=== PATIENT | female | born 1960 | race Caucasian/White ===

== ENCOUNTER 2018-09-01 13:54 | Inpatient (IN) ==
[2018-09-01] MEDS ORDERED: TYLENOL PO ONE (14:13)
--- NOTE | 2018-09-01 14:34 | Diag Imaging Result Doc PS360 ---
EXAM: CHEST-2 VIEWS - 09/01/2018 HISTORY: FEVER COUGH TECHNIQUE: Chest two views COMPARISON: 11/04/2016 FINDINGS: Heart size appears within normal limits. Inspiration is mildly shallow. There are ill-defined bilateral infiltrates. These are more extensive on the left than on the right. There is no substantial pleural effusion or pneumothorax identified. IMPRESSION: Ill-defined bilateral infiltrates, most extensive on the left. These are suspicious for pneumonia. Electronically signed by Varghese Hopkins 09/01/2018 2:32 PM
[2018-09-01 14:42] LABS: INFLUENZA A POSITIVE (NEGATIVE); INFLUENZA B NEGATIVE (NEGATIVE)
[2018-09-01 16:12] LABS: BASO# 0.03 X1000 (0.0-0.2); BASO% 0.2 % (0.0-0.8); EOS% 0.6 % (0.0-10.0); HEMATOCRIT 33.2 % (37.0-47.0); HEMOGLOBIN 10.7 g/dL (12.0-16.0); IMM GRAN# 0.08 X1000 (0.0-0.04); IMM GRAN% 0.5 % (0.0-0.5); LYMPH# 3.02 X1000 (1.2-3.4); LYMPH% 18.6 % (20.5-51.1); MCH 27.7 PG (27-31); MCHC 32.2 g/dL (33-37); MONO# 1.11 X1000 (0.11-0.59); MONO% 6.8 % (1.7-9.3); MPV 10.3 FL (7.4-10.4); NEUT# 11.94 X1000 (1.4-6.5); NEUT% 73.3 % (42.2-75.2); PLT 429 X1000 (130-400); RBC 3.86 XMIL (4.2-5.4); RDW 14.5 % (11.5-14.5); WBC 16.28 X1000 (4.8-10.8)
[2018-09-01] MEDS ORDERED: LEVAQUIN 750 MG/D5W 750 MG/150 ML IVPB IV ONE (16:23)
[2018-09-01 16:37] LABS: AGAP 13; ALBUMIN 3.3 g/dL (3.5-5.0); ALKALINE PHOSPHATASE 130 U/L (32-104); BUN 9 mg/dL (8-22); CALCIUM 8.6 mg/dL (8.8-10.2); CHLORIDE 98 mmol/L (98-107); COSMO 268; CREATININE 0.8 mg/dL (0.5-0.9); ESTIMATED GFR > 60; GLUCOSE 120 mg/dL (70-104); GOT 12 U/L (10-30); GPT 9 U/L (10-36); POTASSIUM 3.9 mmol/L (3.5-5.1); SODIUM 134 mmol/L (136-145); TCO2 23 mmol/L (25-35); TOTAL PROTEIN 6.8 g/dL (6.3-8.3)
[2018-09-01] MEDS ORDERED: DUONEB (A & A) INH PRN (16:56)
[2018-09-01 17:07] LABS: INR 0.98; PROTIME 13.5 Seconds (11.0-16.0)
[2018-09-01 17:08] LABS: PTT 31.5 Seconds (22.3-41.8)
[2018-09-01 17:10] LABS: BE 0.8 mmoll (-3.0-3.0); BLOOD TYPE ARTERIAL; HCO3-(ACT) 25.5 mmoll (20.0-26.0); METHB 0.9 % (0.0-1.5); O2(CT) 15.3 mL/dL (15.0-23.0); O2HB 93.5 % (95.0-99.0); PCO2(98.6) 39 mmHg (35-45); PO2(98.6) 79 mmHg (60-100); SAMPLE BLOOD; SAO2 97.4 % (95.0-100.0); THB 11.6 g/dL (11.5-17.4); pH(98.6) 7.42 (7.35-7.45)
[2018-09-01 17:15] LABS: MODALITY CANNULA
[2018-09-01 17:16] LABS: ALLEN TEST YES
[2018-09-01 17:55] LABS: BILIRUBIN URINE NEGATIVE (NEGATIVE); BLOOD URINE NEGATIVE (NEGATIVE); CLARITY CLEAR (CLEAR); COLOR YELLOW; GLUCOSE URINE NEGATIVE (NEGATIVE); KETONE URINE NEGATIVE (NEGATIVE); LEUKOCYTES URINE TRACE (NEGATIVE); NITRITE URINE NEGATIVE (NEGATIVE); PH URINE 6.5; PROTEIN URINE NEGATIVE (NEGATIVE); SP GRAVITY URINE 1.015; UROBILINOGEN URINE 1 mg/dL
[2018-09-01 17:56] LABS: URINE BACTERIA 1+ /HFP; URINE CAST NONE SEEN /LPF; URINE CRYSTAL NONE SEEN /HPF; URINE EPITHELIAL CELLS <10 /HPF (<10); URINE SOURCE CLEAN CATCH; URINE WBC <10 /HPF (<10); URINE YEAST NONE SEEN /HPF
[2018-09-01] MEDS ORDERED: ROBITUSSIN-AC PO PRN (18:17)
[2018-09-01] MEDS: SOLU-MEDROL IV SCH (18:30)
[2018-09-01] MEDS: KLONOPIN PO PRN ×2 (18:31→21:25)
[2018-09-01] MEDS: DUONEB (A & A) INH SCH ×3 (19:19→22:35)
--- NOTE | 2018-09-01 20:24 | HISTORY AND PHYSICAL ---
CHIEF COMPLAINT: Cough, fever. HISTORY OF PRESENT ILLNESS: This is a 57-year-old female with a history of COPD and hypertension, who presents to the emergency room complaining of a productive cough and fever as well as some shortness of breath. She was found to have bilateral pneumonia, with left greater than right. Blood cultures were obtained she was given Levaquin in the emergency room, and she is being admitted for further evaluation and treatment. PAST MEDICAL HISTORY: Hypertension, COPD, hyperlipidemia, anxiety, depression and bipolar disorder. PAST SURGICAL HISTORY: Hysterectomy, sinus surgery and back surgery. SOCIAL HISTORY: She smokes about a pack a day. She has occasional alcohol use. She denies any illicit drug use. ALLERGIES: Rocephin, which causes swelling and rash; Betadine which causes a rash; shellfish causes a rash; doxycycline causes a rash; Toradol, diarrhea; sulfa, rash. HOME MEDICATIONS: A list will be obtained by the nursing staff and will be reviewed and restarted as appropriate. REVIEW OF SYSTEMS: Discussed with the patient, with pertinent positives stated in the HPI. She denied any syncope, dizziness, chest pain, palpitations, any nausea, vomiting, diarrhea, constipation, any black or bloody vomitus or stools, any hematuria, dysuria, frequency or urgency. PHYSICAL EXAMINATION: GENERAL: This is a 57-year-old female who is sitting up in the stretcher in the emergency room, in no distress. VITAL SIGNS: Blood pressure is 99/67 with a heart rate of 96, respirations are 20, temperature is 100.6 degrees with a T-max of 101.1 degrees. Room air saturation is 89%. EYES: Pupils are equal, round and react to light. EOMs are intact. Sclerae are anicteric. HEENT: Head is normocephalic, atraumatic. Mucous membranes are moist. NECK: Supple, with trachea midline. CARDIOVASCULAR: Regular rate and rhythm. S1 and S2 appreciated. PULMONARY: She has scattered wheezes throughout. Respirations are nonlabored. She has no increased work of breathing. GASTROINTESTINAL: Abdomen is soft, nontender, nondistended. Bowel sounds in all 4 quadrants. GENITOURINARY: She denies any CVA or suprapubic tenderness. SKIN: Warm and dry. NEUROLOGIC: She is alert and oriented x3. LABORATORY DATA: WBC is 16.2 with a hemoglobin of 10.7, hematocrit 33.2 and platelets of 429,000. Sodium 134, potassium 3.9, BUN 9, creatinine 0.8 with a glucose of 120. Influenza A is positive. Influenza B is negative. Blood cultures are pending. DIAGNOSTIC DATA: Chest x-ray reveals ill-defined bilateral infiltrates, more extensive on the left that are suspicious for pneumonia. ASSESSMENT: 1. Bilateral pneumonia. 2. Leukocytosis secondary to #1. 3. Influenza A. 4. Hypertension. 5. Hypoxemia. PLAN: The patient will be admitted to the medical/surgical floor. She will be placed on telemetry. We will give supplemental oxygen, DuoNeb q.4 hours with q.2 hours p.r.n. We will give steroids to taper. Incentive spirometer q.4 hours. She was given Levaquin in the emergency room. We will continue this. We will start Tamiflu 75 mg p.o. b.i.d. For GI prophylaxis PPI, Further treatments pending hospital course. Dictated by GLADIS Mercer for Alex Rizzo MD This chart was documented by, GLADIS Mercer and accurately reflects the services performed, treatment plan and medical decisions as attested by the providers signature Alex Rizzo MD. cc: GLADIS Mercer MD [facility]
[2018-09-01] MEDS: NEXIUM PO SCH (21:25)
[2018-09-01] MEDS: NORCO-7.5 PO PRN (21:25)
[2018-09-01] MEDS: TRILEPTAL PO SCH (21:26)
[2018-09-01] MEDS: TAMIFLU PO SCH (21:26)
[2018-09-01] MEDS: NICODERM PATCH TD SCH (21:31)
--- NOTE | 2018-09-02 01:30 | HISTORY AND PHYSICAL ---
ADDENDUM: Patient seen and examined by myself. Full note dictated and discussed with nurse practitioner. The patient states she has had cough, congestion, shortness of breath, increased work of breathing for the past 2 days. She was diagnosed with the flu in the ER as well as pneumonia. We will admit her to the hospital, place her on Tamiflu, antibiotics, breathing treatments, oxygen. Discussed with patient the perils of Klonopin and hydrocodone. Discussed respiratory suppression especially given the fact that she continues to smoke and has pneumonia. Discussed with patient the reasons to stop smoking. Interestingly, after this discussion the patient still asked the nurse for something to make her sleep. We discussed that would be a very poor option as decreasing her respiratory drive while she is asleep could be detrimental to her overall health. cc: Alex Rizzo MD
[2018-09-02] MEDS: SOLU-MEDROL IV SCH ×3 (01:34→18:15)
[2018-09-02] MEDS: DUONEB (A & A) INH SCH ×6 (02:34→23:24)
[2018-09-02] MEDS: NORCO-7.5 PO PRN ×4 (04:00→22:23)
[2018-09-02 06:29] LABS: BASO# 0.01 X1000 (0.0-0.2); BASO% 0.1 % (0.0-0.8); HEMATOCRIT 34.2 % (37.0-47.0); HEMOGLOBIN 10.7 g/dL (12.0-16.0); IMM GRAN% 0.5 % (0.0-0.5); LYMPH# 1.42 X1000 (1.2-3.4); LYMPH% 7.7 % (20.5-51.1); MCH 26.7 PG (27-31); MCHC 31.3 g/dL (33-37); MCV 85.3 FL (81-99); MONO% 2.2 % (1.7-9.3); MPV 10.1 FL (7.4-10.4); NEUT# 16.45 X1000 (1.4-6.5); NEUT% 89.5 % (42.2-75.2); PLT 443 X1000 (130-400); RBC 4.01 XMIL (4.2-5.4); RDW 14.1 % (11.5-14.5); WBC 18.38 X1000 (4.8-10.8)
[2018-09-02 06:54] LABS: AGAP 16; BUN 10 mg/dL (8-22); CALCIUM 8.5 mg/dL (8.8-10.2); CHLORIDE 99 mmol/L (98-107); COSMO 273; CREATININE 0.7 mg/dL (0.5-0.9); ESTIMATED GFR > 60; GLUCOSE 175 mg/dL (70-104); POTASSIUM 4.7 mmol/L (3.5-5.1); SODIUM 135 mmol/L (136-145); TCO2 20 mmol/L (25-35)
[2018-09-02 07:03] LABS: LYMPHS 8 % (21-51); MONO 2 % (1-9); SEGS 90 % (42-75)
[2018-09-02] MEDS ORDERED: DOXYCYCLINE PO SCH (09:00)
[2018-09-02] MEDS: TAMIFLU PO SCH ×2 (09:05→20:18)
[2018-09-02] MEDS: PROZAC PO SCH (09:05)
[2018-09-02] MEDS: PRINIVIL PO SCH (09:06)
[2018-09-02] MEDS: NICODERM PATCH TD SCH (09:06)
[2018-09-02] MEDS: KLONOPIN PO PRN ×3 (09:06→23:47)
[2018-09-02] MEDS: TRILEPTAL PO SCH ×2 (09:06→20:18)
[2018-09-02] MEDS: NORVASC PO SCH (09:06)
[2018-09-02] MEDS ORDERED: PHENERGAN IM ONE (16:22)
[2018-09-02] MEDS: LEVAQUIN 750 MG/D5W 750 MG/150 ML IVPB IV SCH (16:34)
[2018-09-02] MEDS: NEXIUM PO SCH (20:30)
--- NOTE | 2018-09-03 00:58 | PROGRESS NOTE ---
DATE: 09/02/2018 SUBJECTIVE: Patient notes that she is having a headache. This is not uncommon for her. Denies any fevers or chills. Denies any dysuria, urinary frequency. States she has still has a cough congestion, still has shortness of breath. PHYSICAL EXAMINATION: Vital Signs: Reviewed. Temperature 98.6 degrees, pulse 99, respiratory 18, BP 116/64. General: Patient is awake, currently in mild respiratory distress. Speech actually appears better today than yesterday. HEENT: Normocephalic. Neck: Supple. Cardiovascular: Regular rate. Chest: Clear. Abdomen: Soft. ASSESSMENT: 1. Bilateral pneumonia. 2. Influenza type A. 3. Hypoxic respiratory failure, acute on chronic. 4. Hypertension. 5. Leukocytosis. PLAN: Continue Tamiflu, Levaquin and Solu-Medrol. cc: Alex Rizzo MD
[2018-09-03] MEDS: SOLU-MEDROL IV SCH ×3 (03:01→21:39)
[2018-09-03] MEDS: DUONEB (A & A) INH SCH ×6 (04:08→23:18)
[2018-09-03] MEDS: NICODERM PATCH TD SCH (08:00)
[2018-09-03] MEDS: NORVASC PO SCH (08:01)
[2018-09-03] MEDS: KLONOPIN PO PRN ×2 (08:01→12:15)
[2018-09-03] MEDS: PROZAC PO SCH (08:01)
[2018-09-03] MEDS: TRILEPTAL PO SCH ×2 (08:01→21:40)
[2018-09-03] MEDS: PRINIVIL PO SCH (08:01)
[2018-09-03] MEDS: TAMIFLU PO SCH ×2 (08:01→21:40)
[2018-09-03] MEDS: NORCO-7.5 PO PRN ×2 (08:53→14:27)
--- NOTE | 2018-09-03 11:59 | Diag Imaging Result Doc PS360 ---
EXAM: CHEST-2 VIEWS 09/03/2018 HISTORY: hypoxemia TECHNIQUE: PA and lateral chest COMMENT: There is patchy alveolar and interstitial opacity throughout both lungs. This is denser in the left base than on 09/01/2018 and also slightly worse in the right upper lobe. In the left apex there has been some improvement however. IMPRESSION: Pulmonary edema plus minus pneumonia. Electronically signed by Lamonte Madrid 09/03/2018 11:57 AM
[2018-09-03] MEDS: LEVAQUIN 750 MG/D5W 750 MG/150 ML IVPB IV SCH (16:32)
--- NOTE | 2018-09-03 17:25 | PROGRESS NOTE ---
DATE: 09/03/2018 SUBJECTIVE: Patient had an eventful EEG yesterday. Her O2 saturations dropped into the mid 80s. Her oxygen had to be increased. Currently, she is much improved. Notes she did not sleep well last night, continued to wake up, coughing, congested, continued to have shortness of breath, although this morning notes that she is feeling a little bit better after a recent breathing treatment. OBJECTIVE: Vital signs: Temperature 98.7, pulse 99, respiratory rate 20, BP 110/56, saturation 88% on 2 L, currently 94% on 3 L. General: Patient is pleasant to talk with. She is currently in mild respiratory distress which is actually improved from her admission. HEENT: Normocephalic. Neck: Supple. CARDIOVASCULAR: Regular rate. Chest: Decreased but equal breath sounds. No current wheezing, although did have a breathing treatment. No crackles. Positive rhonchi. Equal air movement bilaterally. Abdomen: Soft, nondistended. Extremities: Moves all extremities. Neurologic: No change. ASSESSMENT: 1. Chronic obstructive pulmonary disease (COPD) with exacerbation. 2. Bilateral pneumonia. 3. Influenza type A. 4. Hypoxic respiratory failure, acute on chronic. 5. Chronic tobacco abuse. 6. Hypertension. 7. Chronic anxiety. 8. Chronic pain. 9. Bipolar. PLAN: We will continue patient in the hospital. Continue oxygen, breathing treatments, antibiotics. We will continue Tamiflu for a 5-day course. Again today, patient asks for pain medications to be increased. I discussed with her again that would be a very difficult and potentially dangerous avenue to undertake. Discussed that all pain medication decreases respiratory effort and oxygenation and that she already dropped her O2 saturation 88% while on 2 L last night, and had she been on higher doses of anxiolytics or pain medication, she may not have survived. Discussed that I will not increase her pain medication, and in fact, would prefer that she not take medication that she has been taking at home on such a regular basis to begin with. The patient acquiesced understanding and stated she would stay what she is on currently. cc: Alex Rizzo MD
[2018-09-03] MEDS ORDERED: VANCOMYCIN 1 GM/NS 1 GM/250 ML IVPB IV ONE (19:42)
[2018-09-03] MEDS ORDERED: VANCOMYCIN IV PER PHARMACY MISC SCH (19:45)
[2018-09-03] MEDS: NEXIUM PO SCH (21:40)
[2018-09-03] MEDS ORDERED: VANCOMYCIN 500 MG/NS 500 MG/100 ML IVPB IV ONE (23:00)
[2018-09-04] MEDS: DUONEB (A & A) INH SCH ×6 (03:16→23:39)
[2018-09-04 05:27] LABS: BASO# 0.01 X1000 (0.0-0.2); BASO% 0.1 % (0.0-0.8); HEMATOCRIT 30.9 % (37.0-47.0); HEMOGLOBIN 9.9 g/dL (12.0-16.0); IMM GRAN# 0.34 X1000 (0.0-0.04); IMM GRAN% 1.7 % (0.0-0.5); LYMPH# 1.68 X1000 (1.2-3.4); LYMPH% 8.5 % (20.5-51.1); MCH 27.6 PG (27-31); MCV 86.1 FL (81-99); MONO# 1.07 X1000 (0.11-0.59); MONO% 5.4 % (1.7-9.3); MPV 9.2 FL (7.4-10.4); NEUT# 16.78 X1000 (1.4-6.5); NEUT% 84.3 % (42.2-75.2); PLT 531 X1000 (130-400); RBC 3.59 XMIL (4.2-5.4); RDW 14.6 % (11.5-14.5); WBC 19.88 X1000 (4.8-10.8)
[2018-09-04] MEDS: SOLU-MEDROL IV SCH (05:47)
[2018-09-04 05:48] LABS: AGAP 10; ALBUMIN 3.2 g/dL (3.5-5.0); ALKALINE PHOSPHATASE 111 U/L (32-104); BUN 9 mg/dL (8-22); CALCIUM 8.2 mg/dL (8.8-10.2); CHLORIDE 104 mmol/L (98-107); COSMO 278; CREATININE 0.6 mg/dL (0.5-0.9); ESTIMATED GFR > 60; GLUCOSE 163 mg/dL (70-104); GOT 20 U/L (10-30); GPT 24 U/L (10-36); POTASSIUM 4.8 mmol/L (3.5-5.1); SODIUM 138 mmol/L (136-145); TCO2 23 mmol/L (25-35); TOTAL BILIRUBIN < 0.15 mg/dL (0.20-1.00); TOTAL PROTEIN 6.5 g/dL (6.3-8.3)
[2018-09-04] MEDS: PRINIVIL PO SCH (10:31)
[2018-09-04] MEDS: NICODERM PATCH TD SCH (10:31)
[2018-09-04] MEDS: TAMIFLU PO SCH ×2 (10:32→22:26)
[2018-09-04] MEDS: TRILEPTAL PO SCH ×2 (10:32→22:26)
[2018-09-04] MEDS: NORVASC PO SCH (10:32)
[2018-09-04] MEDS: NORCO-7.5 PO PRN ×3 (10:32→22:26)
[2018-09-04] MEDS: PROZAC PO SCH (10:33)
[2018-09-04] MEDS ORDERED: LASIX IV SCH (12:00)
--- NOTE | 2018-09-04 12:14 | PROGRESS NOTE ---
DATE: 09/04/2018 SUBJECTIVE: The patient has no major complaints. Breathing is a bit improved. She is still on Optiflow. OBJECTIVE: Vital signs: Blood pressure is 138/67, heart rate of 95, respiratory rate 18, temperature 98.6 degrees. Cardiovascular: Regular rate and rhythm. Pulmonary: She had rales at the bases, right greater than left. Gastrointestinal: Soft, nontender, nondistended. Bowel sounds are positive. LABORATORY DATA: White count 19, hemoglobin 10, hematocrit 30 platelets 531,000. Basic was normal. PROBLEM LIST: 1. Acute chronic obstructive pulmonary disease exacerbation. We will continue breathing treatments, steroids. She seems to be doing okay, but she is still having some issues. We will continue to follow closely. I am going to wean her steroids a bit, and we will follow. 2. Pneumonia. We will continue empiric antibiotics. The patient is on vancomycin and Levaquin. 3. Acute hypoxic respiratory failure. This may be due to pneumonia. It could also be due to heart failure. We will check a BNP and start some Lasix. I will repeat her chest x-ray tomorrow. We will continue weaning O2. She is not typically on home oxygen. She still does smoke, though, and she had to be on BiPAP previously. 4. Influenza A with acute bronchitis and respiratory failure. Continue Tamiflu and follow. This may be just sequelae related to that. 5. We will add Lovenox for deep vein thrombosis (DVT) prophylaxis and follow. DISPOSITION: Pending her clinical status. cc: Aren Jay MD
[2018-09-04] MEDS: LEVAQUIN 750 MG/D5W 750 MG/150 ML IVPB IV SCH (16:25)
[2018-09-04] MEDS: KLONOPIN PO PRN ×2 (16:25→22:26)
[2018-09-04] MEDS ORDERED: SOLU-MEDROL IV SCH (18:00)
[2018-09-04] MEDS ORDERED: VANCOMYCIN 1,450 MG in NS 250 ML IV SCH (18:00)
[2018-09-04] MEDS: PREDNISONE PO SCH (22:26)
[2018-09-05] MEDS: DUONEB (A & A) INH SCH ×6 (03:42→23:16)
[2018-09-05] MEDS: LOVENOX SUBQ SCH (06:22)
[2018-09-05] MEDS: PRILOSEC PO SCH (06:22)
[2018-09-05 06:24] LABS: BASO# 0.03 X1000 (0.0-0.2); BASO% 0.1 % (0.0-0.8); EOS# 0.01 X1000 (0.0-0.7); HEMATOCRIT 33.8 % (37.0-47.0); HEMOGLOBIN 10.4 g/dL (12.0-16.0); IMM GRAN# 0.63 X1000 (0.0-0.04); LYMPH# 1.98 X1000 (1.2-3.4); LYMPH% 9.3 % (20.5-51.1); MCH 26.7 PG (27-31); MCHC 30.8 g/dL (33-37); MCV 86.9 FL (81-99); MONO# 1.68 X1000 (0.11-0.59); MONO% 7.9 % (1.7-9.3); MPV 9.3 FL (7.4-10.4); NEUT# 16.99 X1000 (1.4-6.5); NEUT% 79.7 % (42.2-75.2); PLT 573 X1000 (130-400); RBC 3.89 XMIL (4.2-5.4); RDW 14.9 % (11.5-14.5); WBC 21.32 X1000 (4.8-10.8)
--- NOTE | 2018-09-05 06:34 | Diag Imaging Result Doc PS360 ---
CHEST-2 VIEWS - 09/05/2018 INDICATION: hypoxia COMPARISON: 09/03/2018 FINDINGS: There has been slight improvement in the heterogeneous bilateral widespread interstitial infiltrates. Heart size and pulmonary vascularity are normal. No pneumothorax or pleural effusion. IMPRESSION: Improvement in the indistinct bilateral interstitial infiltrates, nonspecific. Electronically signed by Kush Barrett 09/05/2018 6:32 AM
[2018-09-05 06:53] LABS: AGAP 11; BUN 14 mg/dL (8-22); CALCIUM 8.2 mg/dL (8.8-10.2); CHLORIDE 101 mmol/L (98-107); COSMO 280; CREATININE 0.6 mg/dL (0.5-0.9); ESTIMATED GFR > 60; GLUCOSE 173 mg/dL (70-104); POTASSIUM 4.5 mmol/L (3.5-5.1); SODIUM 138 mmol/L (136-145); TCO2 27 mmol/L (25-35)
[2018-09-05 07:11] LABS: HYPOCHROM OCCASIONAL; LYMPHS 11 % (21-51); MONO 3 % (1-9); POIKILOCYTOSIS 1+; SEGS 86 % (42-75)
[2018-09-05 07:12] LABS: STOMATOCYTES 1+
[2018-09-05] MEDS: PROZAC PO SCH (09:48)
[2018-09-05] MEDS: TRILEPTAL PO SCH ×2 (09:48→21:35)
[2018-09-05] MEDS: NORVASC PO SCH (09:48)
[2018-09-05] MEDS: TAMIFLU PO SCH ×2 (09:48→21:35)
[2018-09-05] MEDS: NORCO-7.5 PO PRN ×3 (09:49→21:36)
[2018-09-05] MEDS: KLONOPIN PO PRN ×3 (09:49→21:35)
[2018-09-05] MEDS: PRINIVIL PO SCH (09:49)
[2018-09-05] MEDS: PREDNISONE PO SCH (09:49)
[2018-09-05] MEDS: NICODERM PATCH TD SCH (09:59)
[2018-09-05] MEDS ORDERED: [UNRECOGNIZED DRUG - OTHER] Inhalation PRN (14:03)
[2018-09-05] MEDS ORDERED: OLODATEROL HCL Inhalation PRN (14:03)
[2018-09-05] MEDS ORDERED: TIOTROPIUM BR Inhalation PRN (14:03)
[2018-09-05] MEDS: LASIX PO SCH (14:36)
[2018-09-05] MEDS ORDERED: LEVAQUIN PO SCH (17:00)
--- NOTE | 2018-09-05 17:11 | PROGRESS NOTE ---
DATE: 09/05/2018 SUBJECTIVE: The patient is breathing a little bit better. OBJECTIVE: Blood pressure is 133/74, heart rate 99, respiratory rate 20, temperature 98.2 degrees.Cardiovascular: Regular rate and rhythm. Pulmonary: Bilateral breath sounds. Clear to auscultation. GI: Soft, nontender, nondistended. Bowel sounds are positive. LABORATORY DATA: White count is 21, hemoglobin and hematocrit 10 and 33, platelets stable PROBLEM LIST: 1. Acute chronic obstructive pulmonary disease exacerbation. Patient is doing okay but is still having some major issues but we will decrease her steroids a bit. 2. Pneumonia on empiric antibiotics. White count is still elevated but that may be related to the prednisone. We have adjusted. 3. Chronic obstructive pulmonary disease exacerbation. We will wean her nebulizer treatments and follow. 4. Influenza A seems to be doing better. We will continue to monitor closely. Anticipate discharge tomorrow. She may need home oxygen. cc: Aren Jay MD MTDD
[2018-09-06] MEDS: DUONEB (A & A) INH SCH ×3 (03:27→11:15)
[2018-09-06] MEDS: NORCO-7.5 PO PRN ×2 (05:22→13:09)
[2018-09-06] MEDS: LOVENOX SUBQ SCH (05:24)
[2018-09-06] MEDS: KLONOPIN PO PRN ×2 (05:40→13:09)
[2018-09-06] MEDS: PRILOSEC PO SCH (06:12)
[2018-09-06 06:31] LABS: BASO# 0.03 X1000 (0.0-0.2); BASO% 0.2 % (0.0-0.8); EOS# 0.09 X1000 (0.0-0.7); EOS% 0.5 % (0.0-10.0); HEMATOCRIT 33.3 % (37.0-47.0); HEMOGLOBIN 10.5 g/dL (12.0-16.0); IMM GRAN# 0.86 X1000 (0.0-0.04); IMM GRAN% 4.6 % (0.0-0.5); LYMPH# 5.15 X1000 (1.2-3.4); LYMPH% 27.3 % (20.5-51.1); MCH 27.2 PG (27-31); MCHC 31.5 g/dL (33-37); MCV 86.3 FL (81-99); MONO% 6.9 % (1.7-9.3); MPV 9.1 FL (7.4-10.4); NEUT# 11.42 X1000 (1.4-6.5); NEUT% 60.5 % (42.2-75.2); PLT 588 X1000 (130-400); RBC 3.86 XMIL (4.2-5.4); RDW 14.5 % (11.5-14.5); WBC 18.85 X1000 (4.8-10.8)
[2018-09-06 06:48] LABS: AGAP 11; BUN 11 mg/dL (8-22); CALCIUM 8.1 mg/dL (8.8-10.2); CHLORIDE 101 mmol/L (98-107); COSMO 278; CREATININE 0.6 mg/dL (0.5-0.9); ESTIMATED GFR > 60; GLUCOSE 118 mg/dL (70-104); POTASSIUM 3.5 mmol/L (3.5-5.1); SODIUM 139 mmol/L (136-145); TCO2 28 mmol/L (25-35)
[2018-09-06 07:38] VITALS: BP 137/76
[2018-09-06] MEDS: NICODERM PATCH TD SCH (08:13)
[2018-09-06] MEDS: PROZAC PO SCH (08:13)
[2018-09-06] MEDS: TAMIFLU PO SCH (08:14)
[2018-09-06] MEDS: PRINIVIL PO SCH (08:14)
[2018-09-06] MEDS: TRILEPTAL PO SCH (08:14)
[2018-09-06] MEDS: LASIX PO SCH (08:14)
[2018-09-06] MEDS: NORVASC PO SCH (08:14)
[2018-09-06] MEDS ORDERED: PREDNISONE PO SCH (09:00)
--- NOTE | 2018-09-06 12:53 | DISCHARGE SUMMARY ---
ADMISSION DATE: 09/01/2018 DISCHARGE DATE: On the day of discharge she is breathing fine, no wheezing. She did qualify for home oxygen. She was felt stable for discharge. No rales, wheezing. Her white count has come down 18. She has been on prednisone orally but she was felt stable for discharge on the . We will discharge her on 5 additional days of Levaquin. I think she has been on Levaquin for several days here. We started p.o. on the , but I think she had been on IV Levaquin prior to that. She has also completed 10 days of Tamiflu for her flu A positivity, so she will not need that and we will give her Combivent and prednisone taper. Please copy to Dr. Pierre and try to establish care with her. This is a [id number] encounter note with Carol Cates, 32 minute discharge. cc: Aren Jay MD
--- NOTE | 2018-09-06 14:21 | DISCHARGE SUMMARY ---
ADMISSION DATE: 09/01/2018 DISCHARGE DATE: 09/06/2018 PRIMARY CARE PHYSICIAN: Dr. Billy Pierre ADMISSION DIAGNOSES: 1. Bilateral pneumonia. 2. Leukocytosis secondary to #1. 3. Influenza A. 4. Hypertension. 5. Hypoxemia. DISCHARGE DIAGNOSES: 1. Acute chronic obstructive pulmonary disease exacerbation. 2. Bilateral pneumonia. 3. Influenza A, improved. SUMMARY OF FINDINGS: This is a 57-year-old female who presented to the emergency room with a productive cough and fever as well as shortness of breath. She was found to have bilateral pneumonia with left greater than right. She was found to be influenza A positive, and was placed on IV antibiotics, Tamiflu 75 mg p.o. b.i.d. DuoNeb q.4 hours routinely and q.2 p.r.n. She has responded well to her therapy. Her leukocytosis is improved. She has been afebrile for greater than 24 hours, and it is felt that she can safely be discharged home today. DISCHARGE MEDICATIONS: 1. Norvasc 10 mg p.o. daily. 2. Clonazepam 1 mg p.o. t.i.d. p.r.n. 3. Prozac 40 mg p.o. daily. 4. Lisinopril 40 mg p.o. daily. 5. Trileptal 300 mg p.o. b.i.d. 6. Stiolto Respimat 2.5 mcg inhalation p.r.n. 7. Nexium 40 mg p.o. at bedtime. 8. Ibuprofen 400 mg as directed. 9. A prescription for Combivent Respimat inhaler 1 puff inhalation q.6 hours. 10. Levaquin 500 mg p.o. daily #5 with no refills. 11. Prednisone taper as directed. FOLLOWUP: She will need to follow up with her primary care physician, and also will have home health services. TIME SPENT: 33 minute discharge. Dictated by GLADIS Rasheed for Aren Jay MD cc: GLADIS Rasheed MD Micah A. Howard, MD [facility]
== END 2018-09-06 14:05 | disposition home or self-care (01) | DRG 193 ==
LOC: P.ED 13:54 → SUATTDRO 13:55 → P.MEDSURG 17:21
PROVIDERS: ATTEND Internal Medicine
CPT/HCPCS: 36415; 71020; 71046; 80048; 80053; 81001; 82550; 82805; 83605; 83880; 84484; 85025; 85610; 85730; 87040; 87070; 87088; 87205; 87275; 87276; 87804; 94640; 94667; 94668; 94761; 94799; 96365; 99285; A9270; J1650; J1940; J1956; J2550; J2920; J2930; J3370; J7506; J7512